=== PATIENT | female | born 1985 | race Caucasian/White ===

== ENCOUNTER 2020-04-14 09:50 | Outpatient (CLI) | payer OTHER ==
[2020-04-14] MEDS ORDERED: OMNIPAQUE 350 MG/ML, 100ML BOTTLE ONE (11:39)
== END 2020-04-14 23:59 | disposition home or self-care (01) ==
LOC: CFH 09:50
PROVIDERS: ATTEND Family Medicine
DX: K76.0 Fatty (change of) liver, not elsewhere classified (principal); M51.36 Other intervertebral disc degeneration, lumbar region
CPT/HCPCS: 74160; Q9967